=== PATIENT | female | born 1995 | race Caucasian/White ===

== ENCOUNTER 2017-10-10 16:12 | Emergency (ER) | payer OTHER ==
[2017-10-10 16:23] VITALS: BP 149/109
--- NOTE | 2017-10-10 16:24 | ER Report ---
History and Physical Time Seen By MD: 16:23 HPI/ROS CHIEF COMPLAINT: Suicidal ideation HISTORY OF PRESENT ILLNESS: 22-year-old female patient presents to emergency room with complaint of suicidal ideation. Patient states that she has been having thoughts of harming herself. She states that last night she had been drinking and was having really strong thoughts of harming herself. She states that during that time she did take a kitchen knife and cut her left forearm, practicing for suicide. Her thought process was that if she gets used to the pain that the pain from suicide of one piece of bad. She states that she has a plan to commit suicide. She is going to get the code to her parents house and get into her father's guns. She states that they are not locked up. She states that she has had thoughts of suicide in the past, she's never had any active plans. She's never attempted suicide. She states she did go see a counselor at the [facility] today. And she was directed to come to the emergency room for further evaluation. REVIEW OF SYSTEMS: Respiratory: No cough, no dyspnea. Cardiovascular: No chest pain, no palpitations. Gastrointestinal: No vomiting, no abdominal pain. Musculoskeletal: No back pain. Allergies: Coded Allergies: cat dander (Verified Allergy, Unknown, 12/22/15) Home Meds No Active Prescriptions or Reported Meds Past Medical/Surgical History Patient has a past medical history of suicidal ideation, alcohol use. Patient has a past surgical history of bilateral ankle surgery. Reviewed Nurses Notes: Yes Smoking Status: Never Smoker Constitutional Vital Sign - Last 24 Hours 10/10/17 10/10/17 10/10/17 10/10/17 16:22 16:23 16:27 16:42 Temp 98.8 Pulse 82 94 90 Resp 16 B/P (MAP) 149/105 (120) 149/109 Pulse Ox 92 96 95 O2 Delivery Room Air 10/10/17 10/10/17 10/10/17 10/10/17 16:57 17:12 17:27 17:42 Pulse 78 ? Pulse Ox 95 10/10/17 17:57 Pulse ??? Physical Exam General Appearance: The patient is alert, has no immediate need for airway protection and no current signs of toxicity. ENT: Tympanic membranes are pearly-rios, auditory canals are patent, mucous membranes are moist. Respiratory: Chest is non tender, lungs are clear to auscultation. Cardiac: regular rate and rhythm Gastrointestinal: Abdomen is soft and non tender, no masses, bowel sounds normal. Musculoskeletal: Neck: Neck is supple and non tender. Extremities have full range of motion and are non tender. Skin: No rashes or lesions. Psych: Patient has poor eye contact throughout interview, patient has a slow rate of speech. DIFFERENTIAL DIAGNOSIS: After history and physical exam differential diagnosis was considered for depression, suicidal ideation. Medical Decision Making Data Points Result Diagram: 10/10/17 1725 10/10/17 1725 Laboratory Hematology Test 10/10/17 17:04 10/10/17 17:25 Urine Color Yellow Urine Clarity Clear Urine pH 7.0 pH (4.8-9.5) Urine Specific Laurel 1.020 Urine Protein Negative mg/dL (NEGATIVE) Urine Glucose (UA) Negative mg/dL (NEGATIVE) Urine Ketones Negative mg/dL (NEGATIVE) Urine Blood Small (NEGATIVE) Urine Nitrite Negative (NEGATIVE) Urine Bilirubin Negative (NEGATIVE) Urine Urobilinogen Negative mg/dL (0.2-1.9) Urine Leukocyte Esterase Negative (NEGATIVE) Urine RBC <1 /HPF (0-2/HPF) Urine WBC <1 /HPF (0-5/HPF) Urine Squamous Epithelial Cells Many /LPF (</=FEW) Urine Bacteria Few /HPF (NONE-FEW) Urine Mucus None /HPF (NONE-FEW) Urine HCG, Qualitative Negative (NEGATIVE) Urine Opiates Screen Negative Urine Barbiturates Screen Negative Ur Tricyclic Antidepressants Screen Negative Urine Phencyclidine Screen Negative Urine Amphetamines Screen Negative Urine Benzodiazepines Screen Negative Urine Cocaine Screen Negative Urine Cannabinoids Screen Negative Red Blood Count 5.27 M/uL (4.17-5.56) Mean Corpuscular Volume 85.4 fL (80.0-96.0) Mean Corpuscular Hemoglobin 29.3 pg (26.0-33.0) Mean Corpuscular Hemoglobin Concent 34.3 g/dL (32.0-36.0) Red Cell Distribution Width 14.0 % (11.5-14.5) Mean Platelet Volume 8.4 fL (7.2-11.1) Neutrophils (%) (Auto) 70.4 % (39.4-72.5) Lymphocytes (%) (Auto) 21.9 % (17.6-49.6) Monocytes (%) (Auto) 6.1 % (4.1-12.4) Eosinophils (%) (Auto) 1.0 % (0.4-6.7) Basophils (%) (Auto) 0.6 % (0.3-1.4) Nucleated RBC Relative Count (auto) 0.0 /100WBC Neutrophils # (Auto) 6.4 K/uL (2.0-7.4) Lymphocytes # (Auto) 2.0 K/uL (1.3-3.6) Monocytes # (Auto) 0.6 K/uL (0.3-1.0) Eosinophils # (Auto) 0.1 K/uL (0.0-0.5) Basophils # (Auto) 0.1 K/uL (0.0-0.1) Nucleated RBC Absolute Count (auto) 0.00 K/uL Sodium Level 140 mmol/L (137-145) Potassium Level 3.7 mmol/L (3.5-5.0) Chloride Level 102 mmol/L (98-107) Carbon Dioxide Level 23 mmol/L (22-31) Blood Urea Nitrogen 15 mg/dl (7-18) Creatinine 0.90 mg/dl (0.52-1.04) Glomerular Filtration Rate Calc > 60.0 Random Glucose 80 mg/dl (75-110) Calcium Level 9.3 mg/dl (8.4-10.2) Magnesium Level 1.8 mg/dl (1.7-2.2) Total Bilirubin 0.4 mg/dl (0.2-1.3) Aspartate Amino Transf (AST/SGOT) 28 U/L (0-35) Alanine Aminotransferase (ALT/SGPT) 36 U/L (0-56) Alkaline Phosphatase 77 U/L (0-126) Total Protein 7.8 gm/dl (6.3-8.2) Albumin 4.3 g/dl (3.5-5.0) Salicylates Level < 10 mg/L Salicylate Last Dose Date unk Acetaminophen Level < 10 ug/ml Serum Alcohol < 10 mg/dl Chemistry Test 10/10/17 17:04 10/10/17 17:25 Urine Color Yellow Urine Clarity Clear Urine pH 7.0 pH (4.8-9.5) Urine Specific Laurel 1.020 Urine Protein Negative mg/dL (NEGATIVE) Urine Glucose (UA) Negative mg/dL (NEGATIVE) Urine Ketones Negative mg/dL (NEGATIVE) Urine Blood Small (NEGATIVE) Urine Nitrite Negative (NEGATIVE) Urine Bilirubin Negative (NEGATIVE) Urine Urobilinogen Negative mg/dL (0.2-1.9) Urine Leukocyte Esterase Negative (NEGATIVE) Urine RBC <1 /HPF (0-2/HPF) Urine WBC <1 /HPF (0-5/HPF) Urine Squamous Epithelial Cells Many /LPF (</=FEW) Urine Bacteria Few /HPF (NONE-FEW) Urine Mucus None /HPF (NONE-FEW) Urine HCG, Qualitative Negative (NEGATIVE) Urine Opiates Screen Negative Urine Barbiturates Screen Negative Ur Tricyclic Antidepressants Screen Negative Urine Phencyclidine Screen Negative Urine Amphetamines Screen Negative Urine Benzodiazepines Screen Negative Urine Cocaine Screen Negative Urine Cannabinoids Screen Negative White Blood Count 9.1 k/uL (4.5-11.0) Red Blood Count 5.27 M/uL (4.17-5.56) Hemoglobin 15.5 g/dL (12.0-16.0) Hematocrit 45.1 % (34.0-47.0) Mean Corpuscular Volume 85.4 fL (80.0-96.0) Mean Corpuscular Hemoglobin 29.3 pg (26.0-33.0) Mean Corpuscular Hemoglobin Concent 34.3 g/dL (32.0-36.0) Red Cell Distribution Width 14.0 % (11.5-14.5) Platelet Count 344 K/uL (150-450) Mean Platelet Volume 8.4 fL (7.2-11.1) Neutrophils (%) (Auto) 70.4 % (39.4-72.5) Lymphocytes (%) (Auto) 21.9 % (17.6-49.6) Monocytes (%) (Auto) 6.1 % (4.1-12.4) Eosinophils (%) (Auto) 1.0 % (0.4-6.7) Basophils (%) (Auto) 0.6 % (0.3-1.4) Nucleated RBC Relative Count (auto) 0.0 /100WBC Neutrophils # (Auto) 6.4 K/uL (2.0-7.4) Lymphocytes # (Auto) 2.0 K/uL (1.3-3.6) Monocytes # (Auto) 0.6 K/uL (0.3-1.0) Eosinophils # (Auto) 0.1 K/uL (0.0-0.5) Basophils # (Auto) 0.1 K/uL (0.0-0.1) Nucleated RBC Absolute Count (auto) 0.00 K/uL Glomerular Filtration Rate Calc > 60.0 Calcium Level 9.3 mg/dl (8.4-10.2) Magnesium Level 1.8 mg/dl (1.7-2.2) Total Bilirubin 0.4 mg/dl (0.2-1.3) Aspartate Amino Transf (AST/SGOT) 28 U/L (0-35) Alanine Aminotransferase (ALT/SGPT) 36 U/L (0-56) Alkaline Phosphatase 77 U/L (0-126) Total Protein 7.8 gm/dl (6.3-8.2) Albumin 4.3 g/dl (3.5-5.0) Salicylates Level < 10 mg/L Salicylate Last Dose Date unk Acetaminophen Level < 10 ug/ml Serum Alcohol < 10 mg/dl Toxicology Test 10/10/17 17:04 10/10/17 17:25 Urine Opiates Screen Negative Urine Barbiturates Screen Negative Ur Tricyclic Antidepressants Screen Negative Urine Phencyclidine Screen Negative Urine Amphetamines Screen Negative Urine Benzodiazepines Screen Negative Urine Cocaine Screen Negative Urine Cannabinoids Screen Negative Salicylates Level < 10 mg/L Salicylate Last Dose Date unk Acetaminophen Level < 10 ug/ml Serum Alcohol < 10 mg/dl Urinalysis Test 10/10/17 17:04 Urine Color Yellow Urine Clarity Clear Urine pH 7.0 pH (4.8-9.5) Urine Specific Laurel 1.020 Urine Protein Negative mg/dL (NEGATIVE) Urine Glucose (UA) Negative mg/dL (NEGATIVE) Urine Ketones Negative mg/dL (NEGATIVE) Urine Blood Small (NEGATIVE) Urine Nitrite Negative (NEGATIVE) Urine Bilirubin Negative (NEGATIVE) Urine Urobilinogen Negative mg/dL (0.2-1.9) Urine Leukocyte Esterase Negative (NEGATIVE) Urine RBC <1 /HPF (0-2/HPF) Urine WBC <1 /HPF (0-5/HPF) Urine Squamous Epithelial Cells Many /LPF (</=FEW) Urine Bacteria Few /HPF (NONE-FEW) Urine Mucus None /HPF (NONE-FEW) Urine HCG, Qualitative Negative (NEGATIVE) ED Course/Re-evaluation ED Course Patient is admitted and examined, history and physical for pain. Differential diagnoses were considered. On examination patient has abrasions to the left arm , patient states that she had cut herself intentionally last night with a kitchen knife. Patient has a difficult time looking when talking with me. Also rate of speech is slow. The lab work for a behavioral health admission were done. Results were unremarkable. I discussed the findings with patient. Patient is in agreement to go up, patient does states she is angry that she feels that she has to. During my initial interview with patient, patient did have a planned that she had access to carry out. As result of that I did want the course of treatment to be fairly transparent. I did discuss the case with Dr. Lindo, psychiatrist, who did agree to accept the patient for admission. I discussed this with the patient who verbalized understanding. Decision to Disposition Date: Oct 10, 2017 Decision to Disposition Time: 18:38 Depart Departure Latest Vital Signs Vital Signs Date Time Temp Pulse Resp B/P (MAP) Pulse Ox O2 Delivery O2 Flow Rate FiO2 10/10/17 17:57 ??? 10/10/17 16:57 95 10/10/17 16:23 98.8 16 149/109 Room Air Impression: Primary Impression: Suicidal ideation Condition: Condition Unchanged Disposition: XFER TO [facility] Referrals: DEVI CLAIRE MD (PCP) New Scripts No Active Prescriptions or Reported Meds KATHI ANTUNEZ Oct 10, 2017 16:23
[2017-10-10 17:36] LABS: PLATELET COUNT, AUTOMATED 344 K/uL (150-450)
== END 2017-10-10 18:40 ==
LOC: ER 16:27
DX: R45.851 Suicidal ideations (principal); S40.812A Abrasion of left upper arm, initial encounter
CPT/HCPCS: 36415; 80305; 80320; 80329; 81001; 81025; 82040; 82247; 82310; 82374; 82435; 82565; 82947; 83735; 84075; 84132; 84155; 84295; 84443; 84450; 84460; 84520; 85025; 99284

== ENCOUNTER 2017-10-10 18:20 | Inpatient (IN) | payer SELFPAY ==
[~2017-10-10] VITALS: Ht 165.1 cm; Wt 93.9 kg
[2017-10-10 19:39] VITALS: BP 128/85
[2017-10-10] MEDS ORDERED: DIAZEPAM 10 MG TAB PO ONE (21:15)
[2017-10-11] MEDS ORDERED: ACETAMINOPHEN 325 MG TAB PO PRN (02:30)
[2017-10-11] MEDS ORDERED: MAG HYD/AL HYD/SIMETH 30ML UDC PO PRN (02:30)
[2017-10-11 06:24] VITALS: BP 114/70
[2017-10-11] MEDS: MULTIVITAMINS TAB PO SCH (08:01)
[2017-10-11] MEDS ORDERED: hydrOXYzine PAMOATE 25 MG CAP PO PRN (14:45)
[2017-10-11] MEDS: SERTRALINE HCL 50 MG TAB PO SCH (15:24)
--- NOTE | 2017-10-11 22:08 | BHS History & Physical ---
History of Present Illness Chief Complaint "I went to the counselor today and they were worried that I had a suicide plan that I am capable of carrying out." History of Present Illness This is the first psychiatric admission for this voluntary 22 year old woman who reports depression, suicidal ideation, and anxiety. Pt has been increasingly depressed over the past month and has been isolating more, and having more suicidal thoughts. 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 She had lunch with her father on the day of admission, and he noticed how stressed she was and he went with her to the counseling office where they met with a therapist. There, she revealed that she had been thinking about getting the code to her father's locked box, taking his gun, and using it to kill herself. She reports three episodes of superficial cutting on her forearm with a kitchen knife over the past month-- she says she was trying to get used to pain in preparation for killing herself. Pt has been depressed for around 6 years, worse over the past one year with stress of school. In addition, 2 years ago she left the [employer], and this has caused a lot of friction with her mother and siblings. One month ago the patient's posts from an on-line forum about leaving the restoration were shared with patient's family against her will, further deepening the rift between her and her mother. Pt also reports a lifelong history of significant anxiety, panic attacks, fear of social situations. [facility] - History Mental Health History: Never any previous psychiatric treatment. Problems: Substance Abuse History: drinks 2-4 drinks, 3 times per week. Feels she has been drinking too much as a crutch. Denies use of any other drugs. Victim Issues: denies history of sexual or physical abuse Other Social History: Born in [place] to intact family, middle of 5 children, raised in [facility] but left the restoration 2 years ago. Father was in [employer], they moved around a lot, including [place], [place], [place], [place], [place], [place], [place]. 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 Identifies as heterosexual, meets folks playing on-line games but does not socialize much due to anxiety. Legal History: Neg. Other Past Medical History: Two surgeries for flat feet several years ago. Some chronic foot pain. Home Meds No Active Prescriptions or Reported Meds Allergies: Coded Allergies: cat dander (Verified Allergy, Unknown, 12/22/15) Family History: No pertinent family history FATHER, Age:50 MOTHER, Age:47 BROTHER OR SISTER BROTHER OR SISTER BROTHER OR SISTER BROTHER OR SISTER Family Psychiatric History: One sister with anxiety/agorophobia. [facility] - Review of Systems All Systems Reviewed/Normal: Yes, Except as Noted Psychiatric: Reports Depression S - Exam Physical Exam Vital Signs Vital Signs 10/11/17 06:24 Temp 99.5 Pulse 89 B/P (MAP) 114/70 (85) Pulse Ox 92 O2 Delivery Room Air Mental Status Exam General Appearance: Casual, Cooperative, Polite, Other (seems anxious, rubbing her hands) Speech: Clear, Delayed, Other (low volume) Mood: Dysthmic/Depressed Affect: Sad, Withdrawn, Tearful, Anxious Thought Process: Organized, Logical, Goal Directed Thought Content: Suicidal Ideation, No Homicidal Ideation, No Delusions, No Auditory Halllucinations, No Visual Hallucinations, No Thought Broadcasting, No Ideas of Reference, No Obsessions, No Compulsions, No Other Sensorium: Clear Cognition: Alert & Oriented-Person, Alert & Oriented-Place, Alert & Oriented- Time, Fwnso-Kxmufjqj-Qbpzxbwah Memory: Immediate, Recent, Remote Intelligence: Average Insight Judgment: Fair Sleep: Normal Medical Decision Making Data Points Hematology Test 10/11/17 00:00 Vitamin D 25-Hydroxy 21 ng/ml (30-100) Chemistry Test 10/11/17 00:00 Vitamin D 25-Hydroxy 21 ng/ml (30-100) HCG neg. UDS neg. Remainder of labs including cbc, chem panel are WNL. TSH pending. [facility] Assessment and Plan Ulok-gz-Nxva Encounter Date: Oct 11, 2017 Hueq-lw-Rmsf Encounter Time: 10:00 [facility] Plan: Admit to Unit, Necessary Precautions, Individual/Group Therapy, Admin /Titrate Meds, Educate Patient Tobacco Medications: Not Appropriate Condition Multpiple Antipsychotics Used: No Problems: (1) Persistent depressive disorder (2) Generalized anxiety disorder DUANE COLLINS MD Oct 11, 2017 22:08
[2017-10-12 06:26] VITALS: BP 102/74
[2017-10-12] MEDS: SERTRALINE HCL 50 MG TAB PO SCH (08:22)
[2017-10-12] MEDS: MULTIVITAMINS TAB PO SCH (08:22)
[2017-10-12] MEDS ORDERED: SERTRALINE HCL 50 MG TAB PO ONE (13:20)
--- NOTE | 2017-10-12 16:48 | BHS Progress Note ---
[facility] - Subjective Progress Notes Subjective Pt seen in team room with therapist. Pt reports less depression today, down from a 6 to a 3 out of 10. She is tolerating zoloft well so far without any side effects. Slept well, appetite is good. Still pretty anxious 12/08, still rubbing her hands. Denies SI today. Discussed how isolated she is and ways to reach out. She will call a friend louise and will invite her father to come in tomorrow for a family session. Vitamin D level was low, so supplement started. Suicidal Ideation: Resolving Homicidal Ideation: None [facility] - Objective Physical Exam Vital Signs Vital Signs 10/12/17 06:26 Temp 97.5 Pulse 89 Resp 16 B/P (MAP) 102/74 (83) Pulse Ox 94 O2 Delivery Room Air Muscle Strength and Tone: WNL Gait and Station: Steady [facility] Medications Reviewed: Side Effects, Benefits of Medication, Risks Allergies Reviewed: Yes Mental Status Exam General Appearance: Casual, Cooperative, Polite, Other (seems anxious, rubbing her hands) Speech: Clear, Delayed, Other (low volume) Mood: Dysthmic/Depressed Affect: Sad, Withdrawn, Tearful, Anxious Thought Process: Organized, Logical, Goal Directed Thought Content: Suicidal Ideation (resolving), No Homicidal Ideation, No Delusions, No Auditory Halllucinations, No Visual Hallucinations, No Thought Broadcasting, No Ideas of Reference, No Obsessions, No Compulsions, No Other Sensorium: Clear Cognition: Alert & Oriented-Person, Alert & Oriented-Place, Alert & Oriented- Time, [place]ekau-Kjmczbqz-Msxdilczh Memory: Immediate, Recent, Remote Intelligence: Average Insight Judgment: Fair Lab Hematology Test 10/11/17 00:00 Vitamin D 25-Hydroxy 21 ng/ml (30-100) Chemistry Test 10/11/17 00:00 Vitamin D 25-Hydroxy 21 ng/ml (30-100) [facility] Assessment and Plan Lvfr-nn-Okyu Encounter Date: Oct 12, 2017 Slyh-yj-Aavs Encounter Time: 11:15 [facility] Plan: Admit to Unit, Necessary Precautions, Individual/Group Therapy, Admin /Titrate Meds, Educate Patient Tobacco Medications: Not Appropriate Condition Multpiple Antipsychotics Used: No Problems: (1) Persistent depressive disorder (2) Generalized anxiety disorder DUANE COLLINS MD Oct 12, 2017 16:48
[2017-10-13 06:31] VITALS: BP 96/60
[2017-10-13] MEDS: MULTIVITAMINS TAB PO SCH (08:35)
[2017-10-13] MEDS: CHOLECALCIFEROL 1000 UNIT TAB PO SCH (08:35)
[2017-10-13] MEDS ORDERED: SERTRALINE HCL 50 MG TAB PO SCH (09:00)
--- NOTE | 2017-10-13 10:21 | BHS Progress Note ---
[facility] - Subjective Progress Notes Subjective Met with pt, her father, and her brother, with treatment team, in family session. Pt reporting improved mood today, and denies SI. Pt interacted well with family, and able to communicate her needs and also her boundaries effectively. Pt made a plan with her father for regular lunch meetings. We discussed the importance of ongoing outpatient therapy to continue to work on coping skills for anxiety. Pt still visibly anxious, rubbing her hands, jiggling her knee, but this decreased as the meeting progressed. Will consider adding a prn of propranolol for times of increased stress, like when giving a presentation-- pt will think about it, and if she decides to try it we will do a test dose here today to make sure it is hemodynamically tolerated. Pt denies any medication side effects to zoloft-- denies agitation, denies SI, denies GI upset or KOHLI's. Tentative discharge tomorrow. Suicidal Ideation: Resolving Homicidal Ideation: None [facility] - Objective Physical Exam Vital Signs Vital Signs 10/12/17 10/13/17 06:26 06:31 Temp 97.6 Pulse 63 Resp 16 B/P (MAP) 96/60 (72) Pulse Ox 96 O2 Delivery Room Air Muscle Strength and Tone: WNL Gait and Station: Steady [facility] Medications Reviewed: Side Effects, Benefits of Medication, Risks Allergies Reviewed: Yes Mental Status Exam General Appearance: Casual, Cooperative, Polite, Other (seems anxious, rubbing her hands) Speech: Clear, Spontaneous, Normal Rate, Normal Rhythm, Normal Volume, Other ( low volume) Mood: Dysthmic/Depressed Affect: Sad (brighter today), Anxious Thought Process: Organized, Logical, Goal Directed Thought Content: Suicidal Ideation (denies this am), No Homicidal Ideation, No Delusions, No Auditory Halllucinations, No Visual Hallucinations, No Thought Broadcasting, No Ideas of Reference, No Obsessions, No Compulsions, No Other Sensorium: Clear Cognition: Alert & Oriented-Person, Alert & Oriented-Place, Alert & Oriented- Time, Tghir-Xztojljj-Paxywcshu Memory: Immediate, Recent, Remote Intelligence: Average Insight Judgment: Fair [facility] Assessment and Plan Vlqa-eo-Kuyw Encounter Date: Oct 13, 2017 Sxec-xv-Vqwo Encounter Time: 09:00 [facility] Plan: Admit to Unit, Necessary Precautions, Individual/Group Therapy, Admin /Titrate Meds, Educate Patient Tobacco Medications: Not Appropriate Condition Multpiple Antipsychotics Used: No Problems: (1) Persistent depressive disorder (2) Generalized anxiety disorder DUANE COLLINS MD Oct 13, 2017 10:21
[2017-10-13] MEDS ORDERED: PROPRANOLOL HCL 20 MG TAB PO ONE (13:45)
[2017-10-13 13:50] VITALS: BP 133/78
[2017-10-13 15:01] VITALS: BP 119/73
[2017-10-14 06:10] VITALS: BP 122/82
[2017-10-14] MEDS: MULTIVITAMINS TAB PO SCH (08:14)
[2017-10-14] MEDS: CHOLECALCIFEROL 1000 UNIT TAB PO SCH (08:14)
[2017-10-14] MEDS ORDERED: CHOL10005 PO (08:40)
[2017-10-14] MEDS ORDERED: MULT-859 PO (08:40)
[2017-10-14] MEDS ORDERED: SERT-173 PO (08:40)
[2017-10-14] MEDS ORDERED: SERTRALINE HCL 50 MG TAB PO SCH (09:00)
[2017-10-14] MEDS ORDERED: PROP10TA58 PO (10:59)
--- NOTE | 2017-10-14 13:35 | BHS Discharge Summary ---
[facility] Discharge Summary Zjfc-al-Ltgh Encounter Date: Oct 14, 2017 Mcin-jm-Uprv Encounter Time: 11:00 Reason-Hosp/Final Diag (DSM-V): (1) Persistent depressive disorder Hospital Course & Plan: Pt was admitted to [facility] and maintained on suicide precautions. She was cooperative and an active participant in her treatment, attending groups and individual therapies and education modules. Pt was started on Zoloft which was titrated to 100 mg q am for depression and anxiety; this was well tolerated. She tried a test-dose of propranolol 10 mg to be used prior to public speaking-type activities-- this was well tolerated; BP and pulse came down just slightly after the dose, and she denied any dizziness. We held a family meeting with pt's father and her brother, and this was very helpful. She shared some her her feelings of alienation from her family, the reasons she left the [employer], and she responded well to their supportive comments and offers of support. She and father agreed on weekly lunch dates to continue to build their connection. 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 Father verbalized understanding that his firearm should remain secured at all times. Pt was discharged in much improved condition, to follow up at [facility] for therapy and medication management. (2) Generalized anxiety disorder Physical Exam Latest Vital Signs Vital Signs 10/14/17 06:10 Temp 98.8 Pulse 92 Resp 15 B/P (MAP) 122/82 (95) Pulse Ox 95 O2 Delivery Room Air Mental Status Exam General Appearance: Casual, Well Groomed, Good Eye Contact, Cooperative, Polite , Good Interaction Speech: Clear, Spontaneous, Normal Rate, Normal Rhythm, Normal Volume Mood: Euthymic Affect: Full and Appropriate, Anxious (under much better control, using relaxation coping skills.) Thought Process: Organized, Logical, Goal Directed Thought Content: No Suicidal Ideation, No Homicidal Ideation, No Delusions, No Auditory Halllucinations, No Visual Hallucinations, No Thought Broadcasting, No Ideas of Reference, No Obsessions, No Compulsions, No Other Sensorium: Clear Cognition: Alert & Oriented-Person, Alert & Oriented-Place, Alert & Oriented- Time, Mwnhg-Nuuuzfta-Xfuqlmrgw Memory: Immediate, Recent, Remote Intelligence: Average Insight Judgment: Good Departure Condition: Improved Discharge to: Home Discharge Instructions Home Meds Reported Medications Propranolol Hcl (PROPRANOLOL HCL) 10 Mg Tablet, 10 MG PO DAILY Y for ANXIETY 10/14/17 Sertraline Hcl (ZOLOFT) 100 Mg Tablet, 1 TAB PO QDAY, TAB 10/14/17 Cholecalciferol (Vitamin D3) (VITAMIN D3) 1,000 Unit Tablet, 2000 UNIT PO DAILY , TAB 10/14/17 Multivits,Ca,Minerals/Iron/Fa (THERA-M TABLET) 1 Each Tablet, 1 EACH PO DAILY 10/14/17 Multpiple Antipsychotics Used: No Diet: Regular Activity: As Tolerated Special Instructions: Discharge today. Follow up with outpatient therapy and medication management. Follow up with your Primary Care Provider for testing on Vitamin D levels in one month. DUANE COLLINS MD Oct 14, 2017 13:35
== END 2017-10-14 12:30 | disposition home or self-care (01) | DRG 880 ==
LOC: BHS 18:20
PROVIDERS: ADMIT Psychiatry & Neurology Psychiatry; ATTEND Psychiatry & Neurology Psychiatry
DX: F41.1 Generalized anxiety disorder (principal); R45.851 Suicidal ideations; F34.1 Dysthymic disorder; G89.29 Other chronic pain; E55.9 Vitamin D deficiency, unspecified; Z60.4 Social exclusion and rejection; Z73.3 Stress, not elsewhere classified; Z55.8 Other problems related to education and literacy
CPT/HCPCS: 82306